=== PATIENT | male | born 1955 | race African-American/Black ===

== ENCOUNTER 2022-07-08 13:31 | Inpatient (IN) | payer OTHER ==
[2022-07-08 14:41] VITALS: BMI 22.9
[2022-07-08] MEDS ORDERED: MAGNESIUM HYDROX 2400MG/30ML ORAL SUSPENSION 30 ML CUP PO PRN (15:16)
[2022-07-08] MEDS ORDERED: ONDANSETRON *ODT* 4 MG TABLET SL PRN (15:16)
[2022-07-08] MEDS ORDERED: NICOTINE 10 MG CARTRIDGE (INHALER) IH PRN (15:16)
[2022-07-08] MEDS ORDERED: BENZOCAINE/MENTHOL (CHLORASEPTIC ) LOZENGE MM PRN (15:16)
[2022-07-08] MEDS ORDERED: MAGNESIUM CITRATE 300 ML BOTTLE PO PRN (15:16)
[2022-07-08] MEDS ORDERED: ACETAMINOPHEN 325 MG TABLET (FP) PO PRN (15:16)
[2022-07-08] MEDS ORDERED: chlordiazePOXIDE HCL 25 MG CAPSULE PO PRN (15:16)
[2022-07-08] MEDS ORDERED: DICYCLOMINE HCL 10 MG CAPSULE PO PRN (15:16)
[2022-07-08] MEDS ORDERED: IBUPROFEN 400 MG TABLET (FP) PO PRN (15:16)
[2022-07-08] MEDS ORDERED: MAG HYDROX/AL HYDROX/SIMETH 30 ML UNIT-DOSE CUP PO PRN (15:16)
[2022-07-08] MEDS ORDERED: LOPERAMIDE HCL 2 MG CAPSULE PO PRN (15:16)
[2022-07-08] MEDS ORDERED: BISMUTH SUBSALICYLATE 524 MG/30 ML PO PRN (15:16)
[2022-07-08] MEDS: METHOCARBAMOL 500 MG TABLET PO PRN (17:31)
[2022-07-08] MEDS: hydrOXYzine PAMOATE 25 MG CAPSULE (FP) PO SCH ×2 (17:32→22:19)
[2022-07-08] MEDS: PRENATAL VITAMINS W/ FOLIC ACID TABLET (FP) PO SCH (17:32)
[2022-07-08] MEDS: chlordiazePOXIDE HCL 25 MG CAPSULE PO SCH ×2 (18:43→22:19)
[2022-07-08] MEDS: MELATONIN 5 MG TABLETS PO SCH (22:18)
[2022-07-08] MEDS: THIAMINE HCL 100 MG TABLET (FP) PO SCH (22:19)
[2022-07-09] MEDS: chlordiazePOXIDE HCL 25 MG CAPSULE PO SCH ×4 (06:18→23:36)
[2022-07-09] MEDS: hydrOXYzine PAMOATE 25 MG CAPSULE (FP) PO SCH ×5 (06:18→23:20)
[2022-07-09] MEDS: METHOCARBAMOL 500 MG TABLET PO PRN (11:17)
[2022-07-09] MEDS: PRENATAL VITAMINS W/ FOLIC ACID TABLET (FP) PO SCH (11:17)
[2022-07-09] MEDS: THIAMINE HCL 100 MG TABLET (FP) PO SCH ×2 (11:18→23:20)
[2022-07-09 11:31] LABS: HEMATOCRIT 46.8 % (35.4-49); HEMOGLOBIN 14.9 GM/dL (11.7-16.9); MCH 29.3 pg (25.7-33.7); MCHC 31.8 g/dl (32.0-35.9); MEAN CELL VOLUME 92.1 fl (80-96); MEAN PLT VOLUME 7.1 fl (7.5-11.1); PLATELET COUNT 224 10^3/uL (134-434); RBC 5.09 M/mm3 (4.00-5.60); RDW 14.5 % (11.9-15.9)
[2022-07-09 11:36] LABS: ALBUMIN 3.6 g/dl (3.4-5.0)
[2022-07-09 11:37] LABS: BLOOD UREA NITROGEN 13.1 mg/dL (7-18); CALCIUM 8.7 mg/dL (8.5-10.1)
[2022-07-09 11:39] LABS: CREATININE 0.9 mg/dL (0.55-1.3)
[2022-07-09 11:41] LABS: BILIRUBIN,TOTAL 0.3 mg/dL (0.2-1)
[2022-07-09] MEDS: MELATONIN 5 MG TABLETS PO SCH (23:38)
[2022-07-10] MEDS: chlordiazePOXIDE HCL 25 MG CAPSULE PO SCH ×4 (06:26→23:05)
[2022-07-10] MEDS: hydrOXYzine PAMOATE 25 MG CAPSULE (FP) PO SCH ×5 (06:26→23:06)
[2022-07-10] MEDS: PRENATAL VITAMINS W/ FOLIC ACID TABLET (FP) PO SCH (10:51)
[2022-07-10] MEDS: THIAMINE HCL 100 MG TABLET (FP) PO SCH ×2 (10:53→23:06)
[2022-07-10] MEDS: IBUPROFEN 600 MG TABLET (FP) PO PRN (19:34)
[2022-07-10] MEDS: METHOCARBAMOL 500 MG TABLET PO PRN (19:34)
[2022-07-10] MEDS: MELATONIN 5 MG TABLETS PO SCH (23:05)
[2022-07-11] MEDS ORDERED: chlordiazePOXIDE HCL 10 MG CAPSULE PO PRN
[2022-07-11] MEDS: hydrOXYzine PAMOATE 25 MG CAPSULE (FP) PO SCH ×5 (06:33→22:55)
[2022-07-11] MEDS: chlordiazePOXIDE HCL 10 MG CAPSULE PO SCH ×4 (06:33→22:55)
[2022-07-11] MEDS: ACETAMINOPHEN 325 MG TABLET (FP) PO PRN (09:30)
[2022-07-11] MEDS: PRENATAL VITAMINS W/ FOLIC ACID TABLET (FP) PO SCH (10:15)
[2022-07-11] MEDS: THIAMINE HCL 100 MG TABLET (FP) PO SCH ×2 (11:43→22:55)
[2022-07-11] MEDS: guaiFENesin 600 MG TABLET.ER (FP) PO SCH ×2 (12:28→22:55)
[2022-07-11] MEDS: METHOCARBAMOL 500 MG TABLET PO PRN (18:21)
[2022-07-11] MEDS: IBUPROFEN 600 MG TABLET (FP) PO PRN (18:23)
[2022-07-11] MEDS: MELATONIN 5 MG TABLETS PO SCH (22:55)
[2022-07-12] MEDS: chlordiazePOXIDE HCL 10 MG CAPSULE PO SCH ×4 (05:50→18:20)
[2022-07-12] MEDS: hydrOXYzine PAMOATE 25 MG CAPSULE (FP) PO SCH ×7 (05:50→22:54)
[2022-07-12] MEDS: IBUPROFEN 600 MG TABLET (FP) PO PRN ×2 (06:12→16:49)
[2022-07-12] MEDS: ACETAMINOPHEN 325 MG TABLET (FP) PO PRN (07:31)
[2022-07-12] MEDS: PRENATAL VITAMINS W/ FOLIC ACID TABLET (FP) PO SCH (11:46)
[2022-07-12] MEDS: THIAMINE HCL 100 MG TABLET (FP) PO SCH ×2 (11:46→22:55)
[2022-07-12] MEDS: guaiFENesin 600 MG TABLET.ER (FP) PO SCH ×2 (11:46→22:54)
[2022-07-12] MEDS: MELATONIN 5 MG TABLETS PO SCH (22:54)
[2022-07-13] MEDS ORDERED: chlordiazePOXIDE HCL 10 MG CAPSULE PO ONE (05:00)
[2022-07-13] MEDS: hydrOXYzine PAMOATE 25 MG CAPSULE (FP) PO SCH ×2 (06:31→10:22)
[2022-07-13 09:26] VITALS: BP 108/70; PULSE 81; RESP 18; TEMP 97.8
[2022-07-13] MEDS: METHOCARBAMOL 500 MG TABLET PO PRN (10:22)
[2022-07-13] MEDS: PRENATAL VITAMINS W/ FOLIC ACID TABLET (FP) PO SCH (10:22)
[2022-07-13] MEDS: guaiFENesin 600 MG TABLET.ER (FP) PO SCH (10:22)
[2022-07-13] MEDS: ACETAMINOPHEN 325 MG TABLET (FP) PO PRN (10:23)
[2022-07-13] MEDS: THIAMINE HCL 100 MG TABLET (FP) PO SCH (10:25)
[2022-07-14] MEDS: ACETAMINOPHEN 325 MG TABLET (FP) PO PRN (06:26)
== END 2022-07-13 12:36 | disposition other institution (70) | DRG 774 ==
LOC: YASAS 13:31 → Y6N 16:46
PROVIDERS: ADMIT Allergy & Immunology; ATTEND Allergy & Immunology
PROC: HZ2ZZZZ Detoxification Services for Substance Abuse Treatment (ICD-10-PCS; principal; 2022-07-08)
DX: F10.230 Alcohol dependence with withdrawal, uncomplicated (principal); F14.10 Cocaine abuse, uncomplicated; F12.20 Cannabis dependence, uncomplicated; F17.210 Nicotine dependence, cigarettes, uncomplicated; J45.909 Unspecified asthma, uncomplicated; Z99.89 Dependence on other enabling machines and devices
CPT/HCPCS: 36415; 80053; 82962; 85027; 86780; 93005; 93010; C9803-CS; U0003; U0005

== ENCOUNTER 2022-07-13 12:42 | Inpatient (IN) | payer OTHER ==
[2022-07-13] MEDS ORDERED: LOPERAMIDE HCL 2 MG CAPSULE PO PRN (13:55)
[2022-07-13] MEDS ORDERED: MAG HYDROX/AL HYDROX/SIMETH 30 ML UNIT-DOSE CUP PO PRN (13:55)
[2022-07-13] MEDS ORDERED: BENZOCAINE/MENTHOL (CHLORASEPTIC ) LOZENGE MM PRN (13:55)
[2022-07-13] MEDS ORDERED: guaiFENesin 200 MG/10 ML 10 ML UNIT-DOSE CUPS PO PRN (13:55)
[2022-07-13] MEDS ORDERED: P-EPHED 60MG/TRIPROLIDI 2.5MG TABLET PO PRN (13:55)
[2022-07-13] MEDS ORDERED: MAGNESIUM CITRATE 300 ML BOTTLE PO PRN (13:55)
[2022-07-13] MEDS: IBUPROFEN 400 MG TABLET (FP) PO PRN (15:17)
[2022-07-13] MEDS: ACETAMINOPHEN 325 MG TABLET (FP) PO PRN (19:38)
[2022-07-13] MEDS: MELATONIN 5 MG TABLETS PO PRN (21:09)
[2022-07-13] MEDS: THIAMINE HCL 100 MG TABLET (FP) PO SCH (21:09)
[2022-07-14] MEDS: ACETAMINOPHEN 325 MG TABLET (FP) PO PRN ×3 (09:08→20:37)
[2022-07-14] MEDS: PRENATAL VITAMINS W/ FOLIC ACID TABLET (FP) PO SCH (09:08)
[2022-07-14] MEDS ORDERED: FLUOCINONIDE 0.05% CREAM (60 GM TUBE) TP SCH (10:00)
[2022-07-14] MEDS: IBUPROFEN 400 MG TABLET (FP) PO PRN (15:55)
[2022-07-14] MEDS: LIDOCAINE 5% TOPICAL PATCH TP SCH (18:05)
[2022-07-14] MEDS: THIAMINE HCL 100 MG TABLET (FP) PO SCH (22:17)
[2022-07-14] MEDS: LIDOCAINE PATCH REMOVAL MC SCH (22:18)
[2022-07-15] MEDS: PRENATAL VITAMINS W/ FOLIC ACID TABLET (FP) PO SCH (09:57)
[2022-07-15] MEDS: LIDOCAINE 5% TOPICAL PATCH TP SCH (09:57)
[2022-07-15] MEDS: MAGNESIUM HYDROX 2400MG/30ML ORAL SUSPENSION 30 ML CUP PO PRN (11:11)
[2022-07-15] MEDS: THIAMINE HCL 100 MG TABLET (FP) PO SCH (21:50)
[2022-07-15] MEDS: MELATONIN 5 MG TABLETS PO PRN (21:50)
[2022-07-15] MEDS: LIDOCAINE PATCH REMOVAL MC SCH (21:51)
[2022-07-16] MEDS: ACETAMINOPHEN 325 MG TABLET (FP) PO PRN (06:58)
[2022-07-16] MEDS: LIDOCAINE 5% TOPICAL PATCH TP SCH (10:23)
[2022-07-16] MEDS: PRENATAL VITAMINS W/ FOLIC ACID TABLET (FP) PO SCH (10:23)
[2022-07-16] MEDS: MELATONIN 5 MG TABLETS PO PRN (21:15)
[2022-07-16] MEDS: THIAMINE HCL 100 MG TABLET (FP) PO SCH (21:15)
[2022-07-16] MEDS: LIDOCAINE PATCH REMOVAL MC SCH (21:16)
[2022-07-17] MEDS: LIDOCAINE 5% TOPICAL PATCH TP SCH (09:47)
[2022-07-17] MEDS: PRENATAL VITAMINS W/ FOLIC ACID TABLET (FP) PO SCH (09:47)
[2022-07-17] MEDS: ACETAMINOPHEN 325 MG TABLET (FP) PO PRN ×2 (14:49→21:27)
[2022-07-17 18:19] VITALS: BMI 23.2
[2022-07-17] MEDS: THIAMINE HCL 100 MG TABLET (FP) PO SCH (21:27)
[2022-07-17] MEDS: LIDOCAINE PATCH REMOVAL MC SCH (21:27)
[2022-07-18] MEDS: PRENATAL VITAMINS W/ FOLIC ACID TABLET (FP) PO SCH (10:30)
[2022-07-18] MEDS: LIDOCAINE 5% TOPICAL PATCH TP SCH ×2 (10:31→11:04)
[2022-07-18] MEDS: MAGNESIUM HYDROX 2400MG/30ML ORAL SUSPENSION 30 ML CUP PO PRN (11:04)
[2022-07-18] MEDS ORDERED: hydrOXYzine PAMOATE 25 MG CAPSULE (FP) PO ONE (19:48)
[2022-07-18] MEDS: THIAMINE HCL 100 MG TABLET (FP) PO SCH (23:10)
[2022-07-18] MEDS: LIDOCAINE PATCH REMOVAL MC SCH (23:10)
[2022-07-19 06:48] VITALS: PULSE 70
[2022-07-19] MEDS: LIDOCAINE 5% TOPICAL PATCH TP SCH (10:35)
[2022-07-19] MEDS: PRENATAL VITAMINS W/ FOLIC ACID TABLET (FP) PO SCH (10:36)
[2022-07-19] MEDS ORDERED: hydrOXYzine PAMOATE 25 MG CAPSULE (FP) PO PRN (10:48)
[2022-07-19] MEDS ORDERED: IBUPROFEN 400 MG TABLET (FP) PO PRN (10:48)
[2022-07-19] MEDS ORDERED: COLLOIDAL OATMEAL 1 BAR EACH TP PRN (11:13)
[2022-07-19] MEDS: THIAMINE HCL 100 MG TABLET (FP) PO SCH (21:25)
[2022-07-19] MEDS: MELATONIN 5 MG TABLETS PO PRN (21:25)
[2022-07-19] MEDS: LIDOCAINE PATCH REMOVAL MC SCH (21:26)
[2022-07-20 06:57] VITALS: BP 128/88; RESP 18; TEMP 98.2
== END 2022-07-20 09:21 | disposition home or self-care (01) | DRG 772 ==
LOC: YASAS 12:42 → Y3W 12:46
PROVIDERS: ADMIT Allergy & Immunology; ATTEND Psychiatry & Neurology Pain Medicine
PROC: HZ42ZZZ Group Counseling for Substance Abuse Treatment, Cognitive-Behavioral (ICD-10-PCS; principal; 2022-07-13)
DX: F10.20 Alcohol dependence, uncomplicated (principal); F14.20 Cocaine dependence, uncomplicated; F12.20 Cannabis dependence, uncomplicated; F17.210 Nicotine dependence, cigarettes, uncomplicated; F41.9 Anxiety disorder, unspecified; M17.0 Bilateral primary osteoarthritis of knee; R26.89 Other abnormalities of gait and mobility; Z99.89 Dependence on other enabling machines and devices
CPT/HCPCS: 71046-TC-FY